=== PATIENT | male | born 1945 | race Caucasian/White ===

== ENCOUNTER → 2017-10-28 14:10 | Outpatient (CLI) | payer MEDICARE, OTHER, SELFPAY ==
--- NOTE | 2017-10-28 | DI.US.S_ITS ---
PROCEDURE: US THYROID INDICATIONS: TYROID TECHNIQUE: Real-time scanning was performed of the thyroid gland, with image documentation. COMPARISON: [facility], [place], THYROID, 10/21/2016, 14:23. FINDINGS: Right: Thyroid lobe measures 4.5 x 1.1 x 1.3 cm, and is diffusely heterogeneous in echotexture. Left: Thyroid lobe measures 3.9 x 1.1 x 1.0 cm, and is diffusely heterogeneous in echotexture. Isthmus: 1.9 mm thick. Nodule number: 1 Location: Right mid Size: Unchanged measuring 0.5 x 0.3 x 0.4 cm Composition: Solid Echogenicity: Hypoechoic Shape: wider than tall. Margins: Smooth Echogenic foci: None Total points: 4 ACR TI-RADS category: Moderately suspicious IMPRESSION: No change in solitary right mid pole thyroid nodule. Recommend continued followup as below. ACR TI-RADS definitions and recommendations: TI-RADS 1 (benign): 0 points. FNA not needed. TI-RADS 2 (not suspicious): 2 points. FNA not needed. TI-RADS 3 (mildly suspicious): 3 points. * FNA if 2.5 cm or larger, follow up if 1.5 cm or larger (at 1, 3, and 5 years). TI-RADS 4 (moderately suspicious): 4-6 points. * FNA if 1.5 cm or larger, follow up if 1 cm or larger (at 1, 2, 3, and 5 years). TI-RADS 5 (highly suspicious): 7 points or more. * FNA if 1 cm or larger, follow up if 0.5 cm or larger (every year for 5 years). Dictated by: Adelfo Fine [facility] Interpreted: Rosalee Catherine MD on 10/28/2017 at 14:52 Approved by: Rosalee Catherine MD, PhD on 10/28/2017 at 17:01
== END ==
PROVIDERS: Family Provider Family Medicine; PCP Family Medicine; Visit Provider Family Medicine
DX: E04.1 Nontoxic single thyroid nodule (principal)
CPT/HCPCS: 76536

== ENCOUNTER 2018-12-13 09:09 | Emergency (ER) | payer MEDICARE, OTHER, SELFPAY ==
[2018-12-13 09:10] VITALS: BP 156/72; PULSE 98; RESP 16; TEMP 36.8; O2SAT 97; BMI 23.6
--- NOTE | 2018-12-13 09:18 | ED.MALEGU ---
HPI - Male Genitourinary General Chief complaint: Urogenital-Female Stated complaint: Can't urinate and sore Time Seen by Provider: 12/13/18 09:12 Source: patient and family Mode of arrival: ambulatory Limitations: no limitations History of Present Illness HPI Narrative: Patient is year old male who presents with abdominal pain and inability to urinate. He states the last time he urinated was about 10:00 p.m.. He has severe discomfort in his lower abdomen. No known prostate problems anticoagulation. He has pain in his scrotum as well. Related Data Allergies Allergy/AdvReac Type Severity Reaction Status Date / Time No Known Drug Allergies Allergy Verified 12/13/18 09:33 Review of Systems Review of Systems GENERAL: Denies chills, fatigue, malaise, fever, sweats, travel HEENT: Denies sinus pain, ear pain, sore throat, difficulty swallowing, neck pain RESPIRATORY: Denies dyspnea, cough, wheezing, hemoptysis, sputum. CARDIOVASCULAR: Denies chest pain, palpitations, orthopnea, edema GASTROINTESTINAL: Denies nausea, vomiting, abdominal pain, diarrhea, constipation, melena. : See HPI MUSCULOSKELETAL: Denies weakness, joint pain, or bony pain SKIN: No rash, no erythema, no pruritus NEUROLOGIC: Denies weakness, dizziness, headache, numbness, change in speech, confusion PSYCHIATRIC: No concerning psychosocial issues. 12 point review of systems is negative except for those stated above and HPI [facility] Medical History Patient denies significant medical history (Acute) Social History Smoking Status: Never smoker Social History Smoking Status: Never smoker Exam Initial Vital Signs Initial Vital Signs: Vital Signs Temperature 98.2 F 12/13/18 09:10 Pulse Rate 98 H 12/13/18 09:10 Respiratory Rate 16 12/13/18 09:10 Blood Pressure 156/72 H 12/13/18 09:10 Pulse Oximetry 97 12/13/18 09:10 GENERAL: Well-appearing, well-nourished and in no acute distress. HEENT: Head atraumatic,EOMI, pupils reactive, face symmetric, moist mucous membranes CARDIOVASCULAR: Regular rate and rhythm without murmurs, rubs or gallops. RESPIRATORY: Breath sounds equal bilaterally, no wheezes rales or rhonchi. ABDOMEN: Soft, nontender. Normoactive bowel sounds all 4 quadrants. No guarding or rebound. : Rasmussen catheter now placed urine is clear nonbloody EXTREMITIES: Normal range of motion, no clubbing or edema. Neurovascularly intact NEUROLOGICAL: Alert and oriented x4.Normal gait and speech. SKIN: Warm, dry, no laceration, no petechiae, no rashes or lesions. Course Orders Ordered: ED Orders 12/13/18 09:49 Urinalysis and Microscopic Stat Discontinued Medications Lidocaine HCl (Urojet) 5 ml TOP NOW ONE Stop: 12/13/18 09:21 Last Admin: 12/13/18 09:25 Dose: 5 ml Vital Signs - 8 hr 12/13/18 09:10 12/13/18 10:28 Temperature 98.2 F Pulse Rate 98 H 86 Respiratory Rate 16 12 Blood Pressure 156/72 H 148/62 H Pulse Oximetry 97 99 MDM - Male Genitourinary Lab Data Attestation: I reviewed the patient's lab results. Lab Results 12/13/18 Range/Units 09:49 Urine Color Yellow Urine Appearance Clear Urine pH 5.0 (4.5-8.0) Ur Specific [place] 1.020 (1.000-1.035) Urine Protein Negative (Negative) Urine Glucose (UA) Negative (Negative) g/dL Urine Ketones Trace H (NEGATIVE) Urine Occult Blood 1+ H (Negative) Urine Nitrate Negative (Negative) Urine Bilirubin Negative (NEGATIVE) Urine Urobilinogen 0.2 (0.2) E.U./dL Ur Leukocyte Esterase Negative (NEGATIVE) Urine RBC 1-5/hpf (0-5/HPF) Urine WBC None seen (0-5/HPF) Urine Bacteria None seen (None) Ur Culture Indicated? Cult not indicated MDM Narrative Medical decision making narrative: Rasmussen catheter placed. Patient's symptoms completely improved. No sign of UTI. Recommended follow-up with PCP and/or Urology for removal of catheter. Discharge Plan Departure Patient Disposition: Home Clinical Impression: Acute urinary retention Discharge Date/Time: 12/13/18 10:29 Interventions: ED Discharge Assessment Last Done: 12/13/18 10:28 Instructions: How to Care for Your Rasmussen Catheter -- Male Activity Restrictions/Additional Instructions: *You have been diagnosed with urinary retention *What to do: He Rasmussen catheter place for the 2-3 days. Your PCP or Urology may remove it. *Continue to take medications as directed *Follow up with your primary care provider in 2-3 days *Return to ER if you should have increasing pain blood in urine Rasmussen catheter not draining or any new, worsening or concerning symptoms Referrals: Dena Mcpherson MD [Non-Staff] - John Nicholson MD [Non-Staff] - Alisson Arguelles MD [Physician] - Ignacio Montoya MD [Primary Care Provider] -
[2018-12-13] MEDS: LIDOCAINE 2% (UROJET) 5 ML GEL TOP (09:25)
--- NOTE | 2018-12-13 09:49 | PC.NURSE ---
Manas reports noticing some discomfort last night when he urinated around 10pm. Patient has been unable to urinate this morning. Presents with severe lower abd pain, bilateral groin pain.
[2018-12-13 09:50] LABS: Bacteria Urine None Seen; WBC Urine None Seen (0-5/HPF)
[2018-12-13 09:52] LABS: Appearance Urine UA CLEAR; Bilirubin Urine UA NEGATIVE (NEGATIVE); Color Urine UA YELLOW; Glucose Urine UA NEGATIVE (Negative); Ketones Urine UA TRACE (NEGATIVE); Leukocyte Esterase Urine UA NEGATIVE (NEGATIVE); Nitrite Urine UA NEGATIVE (Negative); Occult Blood Urine UA 1+ (Negative); Protein Urine UA NEGATIVE (Negative); Urobilinogen Urine UA 0.2 E.U./dL (0.2)
[2018-12-13 09:59] LABS: Culture Indicated Urine Cult Not Indicated; RBC Urine 1-5/HPF (0-5/HPF)
--- NOTE | 2018-12-13 10:27 | PC.NURSE ---
Manas switched over to leg bag and educated on maintenance of bell.
[2018-12-13 10:28] VITALS: BP 148/62; PULSE 86; RESP 12; O2SAT 99
== END 2018-12-13 10:29 | disposition home or self-care (01) ==
PROVIDERS: Emergency Provider Emergency Medicine; PCP Family Medicine
DX: R33.9 Retention of urine, unspecified (principal)
CPT/HCPCS: 51798; 81001; 99282; 99283